=== PATIENT | male | born 1970 | race Caucasian/White ===

== ENCOUNTER 2017-02-14 08:47 | Outpatient (CLI) | payer OTHER ==
--- NOTE | 2017-02-14 10:39 | DIAGNOSTIC IMAGING REPORT ---
PROCEDURE: US KIDNEY/RENAL COMPLETE INDICATION: Urinary hesitancy, question urinary retention TECHNIQUE: Chandra scale and color Doppler sonographic imaging of the kidneys and urinary bladder was obtained. Intrarenal resistive indices were calculated when appropriate. COMPARISON: CT abdomen pelvis 06/16/2016 FINDINGS: The right kidney measures 11.8 x 6.2 x 4.6 cm. Normal cortical thickness and echogenicity. There is a corticomedullary upper pole cyst measuring 2.0 cm and mid cortical cyst measuring 1 cm. No suspicious solid lesions, shadowing calculi, or hydronephrosis. Normal color Doppler blood flow throughout the kidney. Resistive indices in the intrarenal parenchymal arteries range from 0.43-0.49. The left kidney measures 11.7 x 6.7 x 5.7 cm. Normal cortical thickness and echogenicity. 1.1 cm corticomedullary cyst. No solid mass, calculus, or hydronephrosis. Normal color Doppler blood flow throughout the kidney. Resistive indices in the intrarenal parenchymal arteries range from 0.52-0.58. The filled urinary bladder has a volume of 99 ml and a post void residual of 10 ml. The urinary bladder wall is uniform in thickness without suspicious thickening or irregularity. No bladder debris, calcification or mass. Bilateral ureteral jets were visible indicating ureteral patency. The visible portion of the prostate measures 4.2 x 2.0 x 4.2 cm. IMPRESSION: 1. Small bilateral renal parenchymal cysts. Otherwise normal renal morphology. 2. Normal urinary bladder morphology. 3. Small postvoid residual in the urinary bladder. Question cystitis or chronic bladder outlet obstruction. 4. The visible portion of the prostate is measuring at the upper limits of normal for patient's age. Recent CT scan also showed slight prostatic enlargement.
== END 2017-02-14 23:00 ==
LOC: US SRH 08:47
DX: R39.11 Hesitancy of micturition (principal)